=== PATIENT | female | born 1975 | race Caucasian/White ===

== ENCOUNTER 2016-09-30 11:13 | Emergency (ER) | payer MEDICAID | END 2016-09-30 12:47 | disposition home or self-care (01) | DX: R59.0 Localized enlarged lymph nodes (principal); H00.022 Hordeolum internum right lower eyelid; H60.501 Unspecified acute noninfective otitis externa, right ear; F17.200 Nicotine dependence, unspecified, uncomplicated ==

== ENCOUNTER 2016-10-31 08:00 | Outpatient (CLI) | payer MEDICAID | END 2016-10-31 08:01 | disposition home or self-care (01) | DX: R32 Unspecified urinary incontinence (principal) ==

== ENCOUNTER 2017-11-17 06:14 | Emergency (ER) | payer MEDICAID ==
[2017-11-17 06:19] VITALS: BP 116/91
[2017-11-17] MEDS ORDERED: PROPARACAINE 0.5% OPHTH DROPS 15 ML LEFTEYE STA (06:34)
--- NOTE | 2017-11-17 07:07 | ED Physician Documentation ---
PD HPI OPHTHO - Stated complaint Stated Complaint: LT EYE REDNESS - Chief complaint Chief Complaint: Heent - History obtained from History obtained from: Patient - History of Present Illness Timing - onset: How many days ago (2) Timing - duration: Days (2) Timing - details: Abrupt onset, Still present Location: Left Quality / character: Burning, Sharp Associated symptoms: Redness, Tearing, FB sensation. No: Loss of vision Contributing factors: Blunt trauma Similar symptoms before: Has not had sx before Recently seen: Not recently seen - Additional information Additional information: 41-year-old female is poked herself in the left eye with her fingernail and she now has a persistent foreign body sensation and some redness. She is also developed a bit of photophobia. She has had something like this happen to her once previously with a corneal abrasion. She poked herself in the eye 2 nights ago. Review of Systems Constitutional: denies: Fever Eyes: reports: Photophobia, Irritation. 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 HEENT: Tonsil/Adenoidectomy - Present Medications Home Medications: Ambulatory Orders Medication Instructions Recorded Confirmed Erythromycin Base [Erythromycin] 1 applic OP Q4H #1 tub 09/30/16 Neomycin/Polymyx/Hc Otic Drops 4 drops OT QID #1 bottle 09/30/16 [Cortisporin Ear Susp] Sertraline [Zoloft] 25 mg PO DAILY 09/30/16 09/30/16 Neomycin/Poly/Dex Ophth Drops 1 drops LEFTEYE QID #1 bottle 11/17/17 [Maxitrol Ophth Drops] - Allergies Allergies/Adverse Reactions: Allergies Allergy/AdvReac Type Severity Reaction Status Date / Time Penicillins Allergy Unknown Verified 11/17/17 06:19 - Social History Does the pt smoke?: Yes Smoking Status: Current every day smoker Does the pt drink ETOH?: Yes Does the pt have substance abuse?: Yes - Immunizations Immunizations: TDAP >10years/unknown - POLST Patient has POLST: No PD ED PE NORMAL - Vitals Vital signs reviewed: Yes (hypertensive ) - General General: Alert and oriented X 3, No acute distress, Well developed/nourished - HEENT HEENT: Atraumatic, PERRL, EOMI, Other (There is injection to the sclera on the left. The is no FB and there is central fluoroscien uptake that is superficial like the abrasion is healing. ) - Neck Neck: Supple, no meningeal sign, No bony TTP - Respiratory Respiratory: No respiratory distress - Derm Derm: Normal color, Warm and dry, No rash - Extremities Extremities: No deformity, No edema - Neuro Neuro: No motor deficit, No sensory deficit Eye Opening: Spontaneous Motor: Obeys Commands Verbal: Oriented GCS Score: 15 - Psych Psych: Normal mood, Normal affect Results - Vitals Vitals: Vital Signs - 24 hr 11/17/17 06:18 Temperature 98.0 C H Heart Rate 59 L Respiratory 18 Rate Blood Pressure 116/91 H O2 Saturation 98 Oxygen O2 Source Room air PD MEDICAL DECISION MAKING - ED course Complexity details: reviewed old records, considered differential, d/w patient ED course: 41-year-old female with a corneal abrasion to the left eye has some irritation to the eye and a bit of photophobia associated with this. It does appear the corneal abrasion is healing. She is administered Maxitrol ophthalmic drops. Departure - Departure Disposition: 01 Home, Self Care Clinical Impression: Corneal abrasion, left Qualifiers: Encounter type: initial encounter Qualified Code(s): S05.02XA - Injury of conjunctiva and corneal abrasion without foreign body, left eye, initial encounter Condition: Stable Instructions: ED Eye Injury Corneal Abrasion Follow-Up: Jimmie Hollis MD [Primary Care Provider] - Prescriptions: Neomycin/Poly/Dex Ophth Drops [Maxitrol Ophth Drops] 1 drops LEFTEYE QID #1 bottle
[2017-11-17] MEDS ORDERED: NEOMYCIN/POLYMYX/DEXAMETH OPHTH DROPS 5 ML LEFTEYE STA (07:17)
== END 2017-11-17 07:36 | disposition home or self-care (01) ==
LOC: ED 06:14
DX: S05.02XA Injury of conjunctiva and corneal abrasion without foreign body, left eye, initial encounter (principal); W22.8XXA Striking against or struck by other objects, initial encounter; F17.200 Nicotine dependence, unspecified, uncomplicated
CPT/HCPCS: 99282; 99283; J3490

== ENCOUNTER 2018-09-15 12:22 | Emergency (ER) | payer MEDICAID ==
[2018-09-15] MEDS ORDERED: DEXAMETHASONE 10 MG/ML VIAL PO STA (15:27)
--- NOTE | 2018-09-15 15:29 | ED Physician Documentation ---
PD HPI LOWER EXT INJURY - Stated complaint Stated Complaint: R FOOT PAIN - Chief complaint Chief Complaint: Ext Problem - History obtained from History obtained from: Patient - History of Present Illness PD HPI LOW EXT INJURY LOCATION: Right, Foot Type of injury: Other (prolonged standing on concrete) Where injury occurred: Work Timing - onset: How many months ago (4) Timing - duration: Months (4) Timing - details: Gradual onset, Still present Improved by: Rest, Immobilization Worsened by: Moving, Palpating Associated symptoms: Swelling. No: Weakness, Numbness Contributing factors: No: Anticoagulated Similar symptoms before: No diagnosis Recently seen: Not recently seen - Additional information Additional information: 42-year-old female with history of tendinitis has developed pain in her right heel it is worse when she is putting pressure on her heel. She spends about 8 hours a day on concrete floors at work and she has excruciating pain when she is at work. She states that she has had continuous pain now for 4 days and this is now become intolerable. She developed some pain in her leg around her knee back in May has started walking differently on her leg and now she is having to walk on her toes. Review of Systems Constitutional: denies: Fever Eyes: denies: Decreased vision Nose: denies: Congestion Throat: denies: Sore throat Respiratory: denies: Cough GI: denies: Vomiting Musculoskeletal: reports: Extremity pain, Extremity swelling, Pain with weight bearing. 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 HEENT: Tonsil/Adenoidectomy - Present Medications Home Medications: Ambulatory Orders Medication Instructions Recorded Confirmed Erythromycin Base [Erythromycin] 1 applic OP Q4H #1 tub 09/30/16 Neomycin/Polymyx/Hc Otic Drops 4 drops OT QID #1 bottle 09/30/16 [Cortisporin Ear Susp] Sertraline [Zoloft] 25 mg PO DAILY 09/30/16 09/30/16 Neomycin/Poly/Dex Ophth Drops 1 drops LEFTEYE QID #1 bottle 11/17/17 [Maxitrol Ophth Drops] Hydrocodone/Acetaminophen 1 - 2 each PO Q6H PRN #14 tablet 09/15/18 [Hydrocodon-Acetaminophen 5-325] - Allergies Allergies/Adverse Reactions: Allergies Allergy/AdvReac Type Severity Reaction Status Date / Time Penicillins Allergy Unknown Verified 09/15/18 12:30 - Social History Does the pt smoke?: Yes Smoking Status: Current every day smoker Does the pt drink ETOH?: Yes ETOH Use: Beer Does the pt have substance abuse?: No - Immunizations Immunizations are current?: Yes Immunizations: TDAP >10years/unknown - POLST Patient has POLST: No PD ED PE NORMAL - Vitals Vital signs reviewed: Yes (hypertensive diastolic mild ) - General General: Alert and oriented X 3, Well developed/nourished, Other (in tears with pain ) - HEENT HEENT: Atraumatic, PERRL, EOMI - Respiratory Respiratory: No respiratory distress - Derm Derm: Normal color, Warm and dry, No rash - Extremities Extremities: No deformity, Other (There is tenderness to the right heel with some mild swelling. distal n/v is intact. ) - Neuro Neuro: Alert and oriented X 3, perl developer 2-12 intact, No motor deficit, No sensory deficit, Normal speech Eye Opening: Spontaneous Motor: Obeys Commands Verbal: Oriented GCS Score: 15 - Psych Psych: Normal mood, Normal affect Results - Vitals Vitals: Vital Signs - 24 hr 09/15/18 09/15/18 12:27 16:40 Temperature 36.4 C L 36.7 C Heart Rate 98 75 Respiratory 18 16 Rate Blood Pressure 125/86 H 119/85 H O2 Saturation 100 99 Oxygen O2 Source Room air - Rads (name of study) foot Radiology: Prelim report reviewed (Impression: No acute fracture or dislocation of the right foot. Small plantar calcaneal spur and trace in this osteophyte formation near the Achilles tendon attachment.), EMP read indepedently, See rad report PD MEDICAL DECISION MAKING - ED course Complexity details: reviewed results, re-evaluated patient, considered differential, d/w patient ED course: 42-year-old female with pain in her heel has a heel spur and she is administered dexamethasone here in the emergency department and we will place her off her feet on crutches and off work for 1 week. Departure - Departure Disposition: Home, Self Care Clinical Impression: Heel spur Condition: Stable Instructions: ED Heel Spur Follow-Up: Castillo aJramillo PA-C [Primary Care Provider] - Prescriptions: Hydrocodone/Acetaminophen [Hydrocodon-Acetaminophen 5-325] 1 - 2 each PO Q6H PRN #14 tablet PRN Reason: pain Forms: Activity restrictions Discharge Date/Time: 09/15/18 16:52
[2018-09-15] MEDS ORDERED: CHERRY SYRUP 10 ML UDC PO ONE (15:35)
--- NOTE | 2018-09-15 16:22 | XRAY Report ---
Reason: heal pain Procedure Date: 09/15/2018 Accession Number: [id number] / [id number] Procedure: XR - Foot 3 View RT CPT Code: FULL RESULT: EXAM: RIGHT FOOT RADIOGRAPHY EXAM DATE: 09/15/2018 04:06 PM. CLINICAL HISTORY: Heel pain. COMPARISON: None available. TECHNIQUE: 3 views. FINDINGS: Bones: No acute fracture or dislocation. Small degenerative calcaneal spur along the plantar surface. Joints: No joint effusion. Joint spaces are preserved. Soft Tissues: Minimal enthesophyte formation in the Achilles tendon near the calcaneal attachment. Soft tissues are otherwise unremarkable. IMPRESSION: No acute fracture or dislocation of the right foot. Small plantar calcaneal spur and trace enthesophyte formation near the Achilles tendon attachment. RADIA
[2018-09-15 16:41] VITALS: BP 119/85
== END 2018-09-15 16:52 | disposition home or self-care (01) ==
LOC: ED 12:22
DX: M77.31 Calcaneal spur, right foot (principal); M25.774 Osteophyte, right foot; F17.200 Nicotine dependence, unspecified, uncomplicated
CPT/HCPCS: 99283

== ENCOUNTER 2019-04-07 01:22 | Emergency (ER) | payer MEDICAID ==
--- NOTE | 2019-04-07 02:28 | ED Physician Documentation ---
PD HPI CHEST PAIN - Stated complaint Stated Complaint: CP/ANXIETY/DIZZY - Chief complaint Chief Complaint: Cardiac - History obtained from History obtained from: Patient - History of Present Illness Timing - onset: How many hours ago (1-2) Timing - onset during: Rest (She had onset of chest pain dyspnea and feeling anxious over the last couple of hours. She had been feeling this intermittently over the last few weeks since her boyfriend's daughter came to live with them. There is been a lot of social interaction issues there. Patient does have history of anxiety and depression in the past and had been feeling more so the last few weeks. Intermittent chest discomfort and feeling of fast heart rate at times. She felt this last couple of hours and is having pain with breathing.) Timing - duration: Hours Timing - details: Gradual onset, Still present, Waxing and waning Quality: Aching, Sharp, Pain Location: Substernal, Left chest Radiation: No: Neck, Back Improved by: No: Rest Worsened by: Inspiration, Palpation, Other (worse with feeling anxious) Associated symptoms: Shortness of air, Feeling faint / dizzy, Palpitations (feels heart racing). No: Nausea, General Weakness, Cough Similar symptoms before: No diagnosis Recently seen: Not recently seen Review of Systems Constitutional: denies: Fever, Chills Nose: denies: Rhinorrhea / runny nose, Congestion Throat: denies: Sore throat Cardiac: reports: Chest pain / pressure, Palpitations. denies: Pedal edema, Calf pain Respiratory: reports: Dyspnea. denies: Cough, Wheezing GI: denies: Abdominal Pain, Nausea, Vomiting, Diarrhea Skin: denies: Rash, Lesions Neurologic: reports: Generalized weakness. denies: Near syncope Psychiatric: reports: Depressed, Anxiety, Insomnia. 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 HEENT: Tonsil/Adenoidectomy - Present Medications Home Medications: Ambulatory Orders Medication Instructions Recorded Confirmed Erythromycin Base [Erythromycin] 1 applic OP Q4H #1 tub 09/30/16 Neomycin/Polymyx/Hc Otic Drops 4 drops OT QID #1 bottle 09/30/16 [Cortisporin Ear Susp] Sertraline [Zoloft] 25 mg PO DAILY 09/30/16 09/30/16 Neomycin/Poly/Dex Ophth Drops 1 drops LEFTEYE QID #1 bottle 11/17/17 [Maxitrol Ophth Drops] Hydrocodone/Acetaminophen 1 - 2 each PO Q6H PRN #14 tablet 09/15/18 [Hydrocodon-Acetaminophen 5-325] LORazepam [Ativan] 1 mg PO BID PRN #15 tablet 04/07/19 Naproxen 500 mg PO BID #20 tablet 04/07/19 traZODone [Desyrel] 50 mg PO HS #30 tablet 04/07/19 - Allergies Allergies/Adverse Reactions: Allergies Allergy/AdvReac Type Severity Reaction Status Date / Time Penicillins Allergy Unknown Verified 09/15/18 12:30 amitriptyline AdvReac Unknown Verified 04/07/19 01:33 - Social History Does the pt smoke?: Yes Smoking Status: Current every day smoker Does the pt drink ETOH?: Yes Does the pt have substance abuse?: No - Immunizations Immunizations are current?: Yes Immunizations: TDAP >10years/unknown - POLST Patient has POLST: No PD ED PE NORMAL - Vitals Vital signs reviewed: Yes - General General: Alert and oriented X 3, Well developed/nourished, Other (Seems anxious and shaky but is pleasant and conversant.) - HEENT HEENT: Moist mucous membranes, Pharynx benign - Neck Neck: Supple, no meningeal sign, No adenopathy - Cardiac Cardiac: RRR (mild tachycardia), No murmur - Respiratory Respiratory: Clear bilaterally, Other (Chest wall tenderness noted anteriorly at the sternal border. There is no crepitance. No redness or deformity.) - Abdomen Abdomen: Soft, Non tender - Derm Derm: Normal color, Warm and dry - Extremities Extremities: No tenderness to palpate, Normal ROM s pain, No edema, No calf tenderness / cord - Neuro Neuro: Alert and oriented X 3, No motor deficit, Normal speech Eye Opening: Spontaneous Motor: Obeys Commands Verbal: Oriented GCS Score: 15 Results - Vitals Vitals: Vital Signs - 24 hr 04/07/19 04/07/19 04/07/19 01:30 03:32 04:12 Temperature 37.0 C Heart Rate 101 H 82 86 Respiratory 18 22 17 Rate Blood Pressure 137/96 H 120/79 101/73 O2 Saturation 99 99 100 04/07/19 04:13 Temperature Heart Rate Respiratory 17 Rate Blood Pressure O2 Saturation Oxygen O2 Source Room air - EKG (time done) No acute process. Rate: Rate (enter#) (86) Rhythm: NSR [place]: Normal Intervals: Normal MA QRS: Normal Ischemia: Normal ST segments. No: ST elevation c/w ischemia, ST depression - Labs Labs: Laboratory Tests 04/07/19 04/07/19 04/07/19 03:15 03:15 03:15 WBC 11.2 H RBC 4.37 Hgb 12.8 Hct 40.0 MCV 91.5 MCH 29.3 MCHC 32.0 RDW 13.0 Plt Count 237 MPV 10.6 Neut # (Auto) 7.9 H Lymph # (Auto) 2.2 [place] # (Auto) 0.9 Eos # (Auto) 0.1 Baso # (Auto) 0.0 Absolute Nucleated RBC 0.00 Nucleated RBC % 0.0 Sodium 141 Potassium 3.9 Chloride 108 Carbon Dioxide 25 Anion Gap 8.0 BUN 19 Creatinine 0.8 Estimated GFR (MDRD) 78 L Glucose 100 Calcium 9.3 Magnesium 1.9 Total Bilirubin 0.7 AST 20 ALT 18 Alkaline Phosphatase 45 Troponin I High Sens 4.5 Total Protein 7.4 Albumin 4.2 Globulin 3.2 Albumin/Globulin Ratio 1.3 Lipase 37 - Rads (name of study) chest xray Radiology: Prelim report reviewed (no acute process), See rad report PD MEDICAL DECISION MAKING - ED course Complexity details: reviewed results, re-evaluated patient, considered differential (Seems likely stress reaction with musculoskeletal chest pain. Will check for acute coronary syndrome as well as lung related disorder with EKG chest x-ray blood test.), d/w patient ED course: She has had difficulty with sleep as well as anxiety. She is having chest wall tenderness and chest pains. We can work short-term with some anti- inflammatories and sleep aid and as needed anxiolytic. She should follow-up with her primary care regarding further ongoing treatment. Departure - Departure Disposition: Home, Self Care Clinical Impression: Stress response Chest pain Qualifiers: Chest pain type: precordial pain Qualified Code(s): R07.2 - Precordial pain Anxiety disorder Qualifiers: Anxiety disorder type: unspecified anxiety disorder Qualified Code(s): F41.9 - Anxiety disorder, unspecified Condition: Stable Record reviewed to determine appropriate education?: Yes Instructions: ED Chest Pain Costochondritis, ED Panic Attack Follow-Up: Castillo Jaramillo PA-C [Primary Care Provider] - Prescriptions: LORazepam [Ativan] 1 mg PO BID PRN #15 tablet PRN Reason: Anxiety Naproxen 500 mg PO BID #20 tablet traZODone [Desyrel] 50 mg PO HS #30 tablet Comments: Your EKG chest x-ray and blood tests are normal with out signs of heart or lung problems per se. I presume this is some chest wall inflammation related to perhaps the coughing and recent chest cold you have had but also related to the anxiety and tension that provokes in the chest wall. Use some anti-inflammatory such as naproxen twice daily for the next 7 to 10 days. Add Tylenol if needed for pains. Trazodone nightly to help with sleep and anxiety in general. Add Lorazepam twice daily as needed for anxiety in the short-term. Follow-up with your primary care regarding any longer term treatment for anxiety. Call for an appointment. Diminished and quit smoking if you can. Stay well-hydrated. Forms: Activity restrictions Discharge Date/Time: 04/07/19 04:13
[2019-04-07] MEDS ORDERED: HYDROcod/ACETAM 5/325 MG TABLET PO STA (03:07)
[2019-04-07] MEDS ORDERED: LORazepam 1 MG TABLET PO STA (03:07)
[2019-04-07] MEDS ORDERED: NAPROXEN 250 MG TABLET PO STA (03:07)
[2019-04-07 03:19] LABS: BASOPHILS % (AUTO) 0.4 %; EOSINOPHILS # (AUTO) 0.1 10^3/uL (0.0-0.7); EOSINOPHILS % (AUTO) 1.2 %; HGB - HEMOGLOBIN 12.8 g/dL (12.0-16.0); LYMPHOCYTES # (AUTO) 2.2 10^3/uL (1.5-3.5); LYMPHOCYTES % (AUTO) 19.6 %; MEAN CORPUSCULAR HEMOGLOBIN 29.3 pg (27.0-31.0); MEAN CORPUSCULAR VOLUME 91.5 fL (81.0-99.0); MEAN PLATELET VOLUME 10.6 fL (7.9-10.8); MONOCYTES # (AUTO) 0.9 10^3/uL (0.0-1.0); MONOCYTES % (AUTO) 7.9 %; NEUTROPHILS # (AUTO) 7.9 10^3/uL (1.5-6.6); NEUTROPHILS % (AUTO) 70.5 %; PLT - PLATELET COUNT 237 10^3/uL (130-450); RED BLOOD COUNT 4.37 10^6/uL (4.20-5.40); WHITE BLOOD COUNT 11.2 x10^3/uL (4.8-10.8)
[2019-04-07 03:32] LABS: ALBUMIN 4.2 g/dL (3.2-5.5); ALBUMIN/GLOBULIN RATIO 1.3 (1.0-2.2); BILIRUBIN,TOTAL 0.7 mg/dL (0.2-1.0); CALCIUM 9.3 mg/dL (8.5-10.3); CREATININE 0.8 mg/dL (0.4-1.0); MAGNESIUM 1.9 mg/dL (1.7-2.8); TOTAL PROTEIN 7.4 g/dL (6.7-8.2)
--- NOTE | 2019-04-07 03:51 | XRAY Report ---
Reason: dyspnea/ cough Procedure Date: 04/07/2019 Accession Number: [id number] / [id number] Procedure: XR - Chest 2 View X-Ray CPT Code: 90825 FULL RESULT: EXAM: CHEST RADIOGRAPHY EXAM DATE: 04/07/2019 03:37 AM. CLINICAL HISTORY: Dyspnea/ cough. COMPARISON: None. TECHNIQUE: 2 views. FINDINGS: Lungs/Pleura: No focal opacities evident. No pleural effusion. No pneumothorax. Normal volumes. Mediastinum: Heart and mediastinal contours are unremarkable. Other: Mild anterior wedge compression fracture at the mid thoracic spine at T9. IMPRESSION: Age-indeterminate mild compression fracture the T9 vertebral body. Otherwise, clear lungs. No acute cardiopulmonary process. RADIA
[2019-04-07 04:13] VITALS: BP 101/73
== END 2019-04-07 04:13 | disposition home or self-care (01) ==
LOC: ED 01:22
DX: F43.8 Other reactions to severe stress (principal); R07.2 Precordial pain; F41.9 Anxiety disorder, unspecified; G47.00 Insomnia, unspecified; F17.200 Nicotine dependence, unspecified, uncomplicated; R53.1 Weakness
CPT/HCPCS: 36415; 71046; 80053; 83690; 83735; 84484; 85025; 93005; 99284; A9270; J8499

== ENCOUNTER 2019-09-05 16:15 | Outpatient (CLI) | payer MEDICAID ==
--- NOTE | 2019-09-06 07:30 | Ultrasound Report ---
Reason: EXCESSIVE AND FREQUENT MENSTRUATION Procedure Date: 09/05/2019 Accession Number: [id number] / [id number] Procedure: US - Pelvic w/Transvaginal CPT Code: Final Report FULL RESULT: EXAM: PELVIC ULTRASOUND EXAM DATE: 09/05/2019 04:36 PM. CLINICAL HISTORY: Excessive and frequent menstruation. COMPARISON: None. TECHNIQUE: Realtime transabdominal pelvic scan performed to identify the uterus and adnexa and as an overview of other pelvic structures, followed by transvaginal scan to provide greater detail of the uterus and adnexa, with static image documentation. FINDINGS: Uterus: 8.2 x 4.3 x 5.0 cm, volume 91 cc. Anteverted position. Normal overall size and echotexture. Masses: None. Endometrium: 6 mm. Heterogeneous appearance. 2 mm endometrial calcification. Small fluid collection versus anechoic cyst at the fundus measuring 3 x 3 mm. Cervix: Several nabothian cysts. Right Ovary: 2.4 x 1.4 x 1.8 cm, volume 3.3 cc. Normal echotexture and blood flow. 1.1 x 0.7 cm cyst. Left Ovary: 1.8 x 1.4 x 2.4 cm, volume 3.1 cc. 2 mm calcification. No cysts. Free Fluid: None. Other: None. IMPRESSION: Small fluid collection versus anechoic cyst measuring 3 mm at the endometrial fundus. No free fluid identified elsewhere. Right ovarian cyst. No myometrial masses were identified. RADIA
== END 2019-09-05 16:16 | disposition home or self-care (01) ==
LOC: DI 16:15
PROVIDERS: ATTEND Nurse Practitioner Obstetrics & Gynecology
DX: N83.201 Unspecified ovarian cyst, right side (principal)
CPT/HCPCS: 76830; 76856

== ENCOUNTER 2020-01-03 11:03 | Outpatient (CLI) | payer MEDICAID | END 2020-01-03 11:04 | disposition home or self-care (01) | LOC: LAB 11:03 | PROVIDERS: ATTEND Obstetrics & Gynecology | DX: Z01.818 Encounter for other preprocedural examination (principal); N92.0 Excessive and frequent menstruation with regular cycle; F32.81 Premenstrual dysphoric disorder; Z20.828 Contact with and (suspected) exposure to other viral communicable diseases ==

== ENCOUNTER 2020-01-05 08:07 | Day surgery (SDC) | payer MEDICAID ==
[~2020-01-05 08:07] MED LIST: BUPIVACAINE 0.5% PF 30 ML VIAL ONE; LIDOCAINE 1%-EPI 1:100000 20 ML MDV ONE; METHYLENE BLUE 0.5% 50 MG/10 ML AMPULE ONE
[2020-01-05] MEDS ORDERED: ONDANSETRON 4 MG/2 ML VIAL IVP ONE (08:08)
[2020-01-05] MEDS ORDERED: KETOROLAC 30 MG/ML VIAL IVP ONE (08:08)
[2020-01-05] MEDS ORDERED: DEXAMETHASONE 4 MG/ML VIAL IVP ONE (08:08)
[2020-01-05] MEDS ORDERED: ACETAMINOPHEN 1,000 MG/100 ML 100 ML IV ONE (08:08)
[2020-01-05] MEDS ORDERED: MIDAZOLAM 2 MG/2 ML VIAL IVP ONE (08:08)
[2020-01-05] MEDS ORDERED: GLYCOPYRROLATE 1 MG/5 ML VIAL IVP ONE (08:08)
[2020-01-05] MEDS ORDERED: fentaNYL 100 MCG/2 ML VIAL IVP ONE (08:08)
[2020-01-05] MEDS ORDERED: PROPOFOL 200 MG/20 ML VIAL IVP ONE (08:08)
[2020-01-05] MEDS ORDERED: NEOSTIGMINE 1 MG/1 ML 10 ML MDV IVP ONE (08:08)
[2020-01-05] MEDS ORDERED: ROCURONIUM 50 MG/5 ML VIAL IVP ONE (08:08)
[2020-01-05] MEDS ORDERED: LACTATED RINGERS 1,000 ML IV ONE ×4 (08:33→14:23)
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
[2020-01-05] MEDS ORDERED: CLINDAMYCIN IV 900 MG/50 ML IV ONE (10:00)
[2020-01-05] MEDS ORDERED: BUPIVACAINE 0.5% PF 30 ML VIAL INFIL ONE ×2 (10:04)
[2020-01-05] MEDS ORDERED: LIDOCAINE 1%-EPI 1:100000 20 ML MDV SUBQ ONE ×2 (10:04)
[2020-01-05] MEDS ORDERED: ONDANSETRON 4 MG/2 ML VIAL IVP PRN (14:25)
--- NOTE | 2020-01-05 14:28 | OPERATIVE REPORT ---
Operative Report - General Procedure Date: 01/05/20 Planned Procedure: LAVH BS, cysto Pre-Op Diagnosis: Menorrhagia PMS Procedure Performed: LAVH BS cysto Post Op Diagnosis: Same - Procedure Note Primary Surgeon: Danial Vogt MD Secondary Surgeon: Rivka Corado MD Anesthesia Provider: Edison Funez CRNA Anesthesia Technique: General ET tube Pathology: Uterus wiht bilateral tubes IV Fluids (mL): 2,300 Estimated Blood Loss (mL): 100 Urine Output (mL): 400
[2020-01-05] MEDS: fentaNYL 100 MCG/2 ML VIAL ONE ×2 (14:38→14:49)
--- NOTE | 2020-01-05 16:41 | OPERATIVE REPORT ---
DATE OF SERVICE: 01/05/2020 Physician: Danial Vogt MD PREOPERATIVE DIAGNOSIS: Menorrhagia. POSTOPERATIVE DIAGNOSIS: Menorrhagia. PROCEDURE PERFORMED: Total laparoscopic hysterectomy with bilateral salpingectomy and cystoscopy. SURGEON: Danial Vogt MD STAFFING RECRUITER: Yvette Malcolm MD ANESTHESIA PROVIDER: Austin Funez CRNA ANESTHETIC: General via endotracheal tube. ESTIMATED BLOOD LOSS: 100 mL IV FLUIDS: 2300 mL URINE OUTPUT: 400 mL FINDINGS: Upon entering abdominal cavity, there was evidence of minimal adhesions on the left hand side. The tubes previously had a tubal ligation. There was no evidence of any adhesions in the pelvis. Upon performing cystoscopy, there was evidence where a needle had been on patient's right-hand side, but no suture was present. There was evidence of good flow from both ureteral orifices. PROCEDURE IN DETAIL: Following adequate endotracheal anesthesia, patient was placed in the dorsal lithotomy position. She was placed in Cornelius stirrups. At this point, pelvic examination under anesthesia was performed. It was limited secondary to abdominal wall thickness. At this point, she was prepped and draped in the usual fashion. A timeout was performed. A speculum was then placed in vagina. Cervix was visualized, grasped with a single-tooth tenaculum. A 4 cm uterine manipulator was placed under direct visualization. At this point, centerless grinder operator's gloves were changed, and 3 ports were placed, one in subumbilical area, one in the left, and one in the right lower abdomen. The uterus was visualized. There was no evidence of any significant adhesions. The right fallopian tube was grasped at the fimbriated end, and a LigaSure was then used to cauterize transect this all the way to the cornu of the uterus. The round ligament was then doubly ligated and transected. The utero-ovarian ligament was then ligated and transected. At this point, the broad ligament was then ligated, transected, and then split. The anterior leaf was carried down to above the uterus and then brought across the lower uterine segment. The posterior leaf was brought down to the uterosacral ligaments. The contralateral side was treated in an identical fashion. The fallopian tubes were removed. The round ligament was doubly cauterized and ligated. The uteroovarian ligament was cauterized and transected. Then the anterior leaf of the broad ligament was opened and carried down to the bladder flap. The posterior leaf was also opened and transected with the LigaSure. This was carried down to the uterosacral ligament. The uterine vessels were identified. Care was taken to avoid any injury to the ureters. The right-hand side was also cauterized and transected down to the uterine arteries. Both ovaries were left in place. At this point, the bladder flap was pushed free of the lower uterine segment. The uterine manipulator was able to be palpated with the laparoscope. A Harmonic scalpel was then used to amputate the uterus from the apex of the vagina. Good hemostasis was obtained the whole way along. At this point, a V-Loc suture was utilized to close the apex of the vagina. Upon inspection, there was an area on the right hand side, which appeared to ballard the bladder, so this was cut and then the area was resutured with V-Loc suture. The area was inspected. No bleeding noted. This was irrigated and once again appeared to be dry. At this point, because of some difficulty with closure at the apex of the vagina, [id number] were used to close the apex of the vagina from below. A cystoscopy was performed, in which there was evidence of good flow from both ureteral orifices. On the right hand side of the bladder, there was evidence where a suture had been present, but there was no suture present at this time. At this point, the procedure was terminated. Sponge and needle counts were correct. Patient was taken to recovery in stable condition. TD: 01/05/2020 14:37 GRETA
[2020-01-05] MEDS: oxyCODONE 5 MG TABLET PO PRN ×2 (17:20→23:56)
[2020-01-05] MEDS ORDERED: ACETAMINOPHEN 500 MG TABLET PO PRN (19:24)
[2020-01-05] MEDS: KETOROLAC 30 MG/ML VIAL IVP PRN (19:29)
[2020-01-05] MEDS: PANTOPRAZOLE 40 MG TABLET PO SCH (19:30)
[2020-01-06] MEDS: oxyCODONE 5 MG TABLET PO PRN ×2 (05:01→11:18)
[2020-01-06] MEDS: PANTOPRAZOLE 40 MG TABLET PO SCH (05:22)
[2020-01-06] MEDS: KETOROLAC 30 MG/ML VIAL IVP PRN (07:59)
--- NOTE | 2020-01-06 08:48 | Discharge Plan ---
Discharge Plan Problem Reviewed?: Yes Disposition: Home, Self Care Condition: Good Diet: Regular Shower Restrictions: No Driving Restrictions: Yes (not while on narcotics) Weight Bearing: Full Weight No Smoking: If you smoke, Please STOP! Call for help. Follow-up with: JOEL AMBROSIO MD [Primary Care Provider] -
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
[2020-01-06 09:14] VITALS: BP 112/76
[2020-01-06] MEDS: FLUoxetine 10 MG CAPSULE PO SCH ×2 (11:17→11:18)
== END 2020-01-06 11:50 | disposition home or self-care (01) ==
LOC: SDS 08:07 → MS2 15:36 → SDS 01-06 11:50
PROVIDERS: ATTEND Obstetrics & Gynecology
PROC: 0UT74ZZ Resection of Bilateral Fallopian Tubes, Percutaneous Endoscopic Approach (ICD-10-PCS; 2020-01-05)
PROC: 0UT94ZZ Resection of Uterus, Percutaneous Endoscopic Approach (ICD-10-PCS; principal; 2020-01-05 09:15)
DX: N92.0 Excessive and frequent menstruation with regular cycle (principal); F32.81 Premenstrual dysphoric disorder; F17.210 Nicotine dependence, cigarettes, uncomplicated
CPT/HCPCS: 58571; A9270; J0131; J7120

== ENCOUNTER 2020-01-08 03:23 | Outpatient (CLI) | payer MEDICAID | END 2020-01-08 03:24 | disposition EMS.NT | LOC: EMS 03:23 | PROVIDERS: ATTEND Surgery | DX: R10.30 Lower abdominal pain, unspecified (principal); R07.9 Chest pain, unspecified ==

== ENCOUNTER 2020-10-01 08:00 | Outpatient (CLI) | payer BC, MEDICAID ==
[2020-10-01 18:11] LABS: RAPID STREP SCREEN Negative (Negative)
== END 2020-10-01 23:59 | disposition home or self-care (01) ==
LOC: LAB.N 08:00
PROVIDERS: ATTEND Family Medicine
DX: J01.10 Acute frontal sinusitis, unspecified (principal); Z20.822 Contact with and (suspected) exposure to COVID-19
CPT/HCPCS: 87070; 87430

== ENCOUNTER 2021-06-05 11:43 | Outpatient (CLI) | payer BC, MEDICAID | END 2021-06-05 23:59 | disposition home or self-care (01) | LOC: LAB.N 11:43 | PROVIDERS: ATTEND Family Medicine | DX: R19.7 Diarrhea, unspecified (principal); Z20.822 Contact with and (suspected) exposure to COVID-19 | CPT/HCPCS: 87275; 87276 ==

== ENCOUNTER 2022-07-23 19:25 | Emergency (ER) | payer BC, MEDICAID ==
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
--- NOTE | 2022-07-23 21:37 | XRAY Report ---
PROCEDURE: Knee 3 View RT INDICATIONS: knee injury, instability and pain TECHNIQUE: 3 views of the right knee were acquired. COMPARISON: None. FINDINGS: Bones: No fractures or dislocations. No suspicious bony lesions. Soft tissues: No joint effusion. No suspicious soft tissue calcifications. IMPRESSION: 1. No fracture or dislocation. Reviewed by: Markus Esquivel MD on 07/23/2022 9:35 PM PST Approved by: Markus Esquivel MD on 07/23/2022 9:35 PM PST Station ID: [id number]
[2022-07-23 22:49] VITALS: BP 136/93
== END 2022-07-23 22:50 | disposition home or self-care (01) ==
LOC: ED 19:25
DX: S89.91XA Unspecified injury of right lower leg, initial encounter (principal); W03.XXXA Other fall on same level due to collision with another person, initial encounter; Y04.2XXA Assault by strike against or bumped into by another person, initial encounter; F17.200 Nicotine dependence, unspecified, uncomplicated
CPT/HCPCS: 99282; 99283